=== PATIENT | male | born 1960 | race Caucasian/White ===

== ENCOUNTER 2020-04-30 19:37 | Emergency (ER) | payer OTHER ==
[~2020-04-30] VITALS: Ht 177.8 cm; Wt 90.7 kg
[2020-04-30 20:06] LABS: ABSOLUTE BASOPHILS 0.1 thou/uL (0.0-0.2); ABSOLUTE EOSINOPHILS 0.1 thou/uL (0.0-0.7); ABSOLUTE LYMPHOCYTES 3.4 thou/uL (0.8-5.3); ABSOLUTE MONOCYTES 0.5 thou/uL (0.0-1.2); ABSOLUTE NEUTROPHILS 4.9 thou/uL (1.6-8.1); BASOPHILS 0.8 %; EOSINOPHILS 1.3 %; HEMATOCRIT 49.1 % (42.0-52.0); HEMOGLOBIN 16.9 gm/dL (14.0-18.0); LYMPHOCYTES 37.4 %; MCH 30.6 pg (26.0-34.0); MCHC 34.3 g/dL (28.0-37.0); MCV 89.2 fL (80.0-100.0); MONOCYTES 5.5 %; MPV 7.9 fl. (7.2-11.1); NUCLEATED RBCS 0 /100WBC; PLATELET COUNT* 229 thou/uL (150-400); RBC 5.51 mil/uL (4.50-6.00); RDW-CV 13.8 % (10.5-14.5)
[2020-04-30 20:17] LABS: CALCIUM 8.2 mg/dL (8.5-10.1)
[2020-04-30 20:19] LABS: INR 1.1; PROTIME 11.6 Seconds (9.20-11.50)
[2020-04-30 20:23] LABS: POTASSIUM 2.8 mmol/L (3.5-5.1)
[2020-04-30 20:28] LABS: MAGNESIUM 2.1 mg/dL (1.8-2.4); TOTAL BILIRUBIN 0.7 mg/dL (<0.1-1.0); TOTAL PROTEIN 8.1 g/dL (6.4-8.2)
[2020-04-30] MEDS ORDERED: ZESTRIL10 MG PO (22:47)
[2020-04-30 23:16] VITALS: BP 138/86
--- NOTE | 2020-05-01 18:21 | EKG ---
[place] [address] ELECTROCARDIOGRAM REPORT Name: MARYAM WEINER Room: [facility]#: [id number] Admission: 04/30/20 Attend Phys: Discharge: 04/30/20 Date of : 64 Date of Service: 04/30/20 [facility] Report #: [id number] THIS REPORT FOR: //name// [facility] ED Test Date: 2020-04-30 Test Time: 19:50:07 Pat Name: MARYAM HUSAM Department: Room: Gender: Foreign Diplomat: DEANNA : 1960 Requested By: Laxmi Plata Order Number: [id number] MD: Nazario Gomez Measurements Intervals [place] Rate: 65 P: 26 LA: 139 QRS: -7 QRSD: 101 T: 31 QT: 422 QTc: 439 Interpretive Statements Sinus rhythm RSR' in V1 or V2, right VCD or RVH No previous ECG available for comparison Electronically Signed On 05-01-2020 18:21:15 [employer] by Nazario Gomez [email or web address] <ELECTRONICALLY SIGNED> By: Deanna Gomez MD, FAC 05/01/20 1821 1950 1950 Deanna Gomez MD, [facility] /EPI
== END 2020-04-30 23:15 | disposition home or self-care (01) ==
LOC: M.ERS 19:37
PROVIDERS: Emergency Medicine
DX: I10 Essential (primary) hypertension (principal); Z20.828 Contact with and (suspected) exposure to other viral communicable diseases; R79.1 Abnormal coagulation profile; Z88.6 Allergy status to analgesic agent